=== PATIENT | male | born 1980 | race Hispanic/Latino ===

== ENCOUNTER 2021-07-22 21:43 | Emergency (ER) | payer BC, OTHER ==
[~2021-07-22] VITALS: Ht 175.3 cm; Wt 97.5 kg
[~2021-07-22 21:43] MED LIST: PROPRANOLOL
[2021-07-22] MEDS ORDERED: ACETAMINOPHEN 325 MG TAB PO ONE ×2 (22:15)
[2021-07-22] MEDS ORDERED: ACETAMINOPHEN 325 MG TAB ONE (22:28)
[2021-07-22 23:33] VITALS: BP 124/77
== END 2021-07-22 23:35 | disposition home or self-care (01) ==
LOC: ER 21:59
DX: R50.9 Fever, unspecified (principal); U07.1 COVID-19; R05.9 Cough, unspecified; E05.90 Thyrotoxicosis, unspecified without thyrotoxic crisis or storm; F41.0 Panic disorder [episodic paroxysmal anxiety]
CPT/HCPCS: 71045; 99283; U0002